=== PATIENT | female | born 1995 | race Caucasian/White ===

== ENCOUNTER 2017-03-02 20:47 | Inpatient (IN) | payer OTHER ==
[~2017-03-02] VITALS: Ht 175.3 cm; Wt 91.2 kg
[2017-03-02 21:02] VITALS: BP 132/82; PULSE 97; RESP 18; TEMP 98.5; O2SAT 100
[2017-03-02] MEDS ORDERED: PROM25TA10 PO (21:15)
[2017-03-02] MEDS ORDERED: ZOFR4TAB PO (21:15)
[2017-03-02] MEDS ORDERED: VENTAER INH (21:15)
[2017-03-02] MEDS ORDERED: PANT40TA3 PO (21:15)
[2017-03-02] MEDS ORDERED: SODIUM CHLORIDE 0.9% FLUSH 10 ML FLUSH IVF PRN (21:45)
--- NOTE | 2017-03-02 21:57 | PD ---
HPI Chief Complaint: Psychiatric Symptoms Time Seen by Provider: 20:59 Travel History International Travel<30 days: No Contact w/Intl Traveler<30days: No Traveled to known affect area: No History of Present Illness HPI Is a 21-year-old woman presents emergency Department under Barfield act. Patient reportedly was having an argument with her mom. Patient is 4 months is a history of psychiatric illness. She apparently a bunch of pills in her mouth, Zoloft, and then spit them out. His a lot of social stressors with being , and her living situation with with her father the baby prior to moving back home. Patient denies swallowing any of the pills. She's been Barfield acted in the past. History Past Medical History Narrative Medical Mental health problems Tetanus Vaccination: > 5 Years Influenza Vaccination: No : 4 Social History Alcohol Use: Yes (OCCASIONALLY BEFORE ) Tobacco Use: Yes (VAPE) Allergies-Medications (Allergen,Severity, Reaction): Coded Allergies: carbamazepine (Verified Allergy, Unknown, 03/02/17) divalproex sodium (Verified Allergy, Unknown, 03/02/17) trazodone (Verified Allergy, Unknown, 03/02/17) Reported Meds & Prescriptions Reported Meds & Active Scripts Active Reported Zofran (Ondansetron HCl) 4 Mg Tab 4 Mg PO DAILY PRN Phenergan (Promethazine HCl) 25 Mg Tablet 25 Mg PO TID PRN Pantoprazole (Pantoprazole Sodium) 40 Mg Tab 40 Mg PO DAILY Ventolin Hfa 18 GM Inh (Albuterol Sulfate) 90 Mcg/Act Aer 2 Puff INH Q4-6H PRN Review of Systems Except as stated in HPI: all other systems reviewed are Neg Physical Exam Narrative GENERAL: Well-appearing 20 year-old woman, no acute distress. SKIN: Focused skin assessment warm/dry. HEAD: Atraumatic. Normocephalic. EYES: Pupils equal and round. No scleral icterus. No injection or drainage. ENT: No nasal bleeding or discharge. Mucous membranes pink and moist. NECK: Trachea midline. No JVD. CARDIOVASCULAR: Regular rate and rhythm. No murmur appreciated. RESPIRATORY: No accessory muscle use. Clear to auscultation. Breath sounds equal bilaterally. GASTROINTESTINAL: Abdomen soft, non-tender, nondistended. Hepatic and splenic margins not palpable. MUSCULOSKELETAL: No obvious deformities. No clubbing. No cyanosis. No edema. NEUROLOGICAL: Awake and alert. No obvious cranial nerve deficits. Motor grossly within normal limits. Normal speech. PSYCHIATRIC: Indignant and sad. Data Data Last Documented VS Vital Signs Date Time Temp Pulse Resp B/P (MAP) Pulse Ox O2 Delivery O2 Flow Rate FiO2 03/02/17 21:02 98.5 97 18 132/82 (99) 100 Orders Orders Electrocardiogram (03/02/17 21:31) Complete Blood Count With Diff (03/02/17 21:31) Comprehensive Metabolic Panel (03/02/17 21:31) Urinalysis - C+S If Indicated (03/02/17 21:31) Sodium Chloride 0.9% Flush (Ns Flush) (03/02/17 21:45) Drug Screen, Random Urine (03/02/17 21:31) Alcohol (Ethanol) (03/02/17 21:31) Salicylates (Aspirin) (03/02/17 21:31) Tylenol (Acetaminophen) (03/02/17 21:31) Ed Poc Ultrasound (03/02/17 ) Ondansetron Odt (Zofran Odt) (03/02/17 22:00) Psych Screen (03/02/17 23:37) Labs Laboratory Tests Test 03/02/17 20:35 03/02/17 22:30 Urine Color LIGHT-YELLOW Urine Turbidity HAZY Urine pH 6.5 Urine Specific [place] 1.005 Urine Protein NEG mg/dL Urine Glucose (UA) NEG mg/dL Urine Ketones NEG mg/dL Urine Occult Blood NEG Urine Nitrite NEG Urine Bilirubin NEG Urine Urobilinogen LESS THAN 2.0 MG/DL Urine Leukocyte Esterase NEG Urine RBC 1 /hpf Urine WBC 2 /hpf Urine Squamous Epithelial Cells 11 /hpf Urine Bacteria OCC /hpf Microscopic Urinalysis Comment CULT NOT INDICATED Blood Urea Nitrogen 5 MG/DL Creatinine 0.53 MG/DL Random Glucose 78 MG/DL Total Protein 7.4 GM/DL Albumin 3.2 GM/DL Calcium Level 9.4 MG/DL Alkaline Phosphatase 118 U/L Aspartate Amino Transf (AST/SGOT) 14 U/L Alanine Aminotransferase (ALT/SGPT) 14 U/L Total Bilirubin 0.2 MG/DL Sodium Level 137 MEQ/L Potassium Level 3.7 MEQ/L Chloride Level 104 MEQ/L Carbon Dioxide Level 23.8 MEQ/L Anion Gap 9 MEQ/L Estimat Glomerular Filtration Rate 143 ML/MIN Salicylates Level LESS THAN 1.7 MG/DL Urine Opiates Screen NEG Acetaminophen Level LESS THAN 2.0 MCG/ML Urine Barbiturates Screen NEG Urine Amphetamines Screen NEG Urine Benzodiazepines Screen NEG Urine Cocaine Screen NEG Urine Cannabinoids Screen POS Ethyl Alcohol Level LESS THAN 3 MG/DL White Blood Count 9.6 TH/MM3 Red Blood Count 3.67 MIL/MM3 Hemoglobin 11.5 GM/DL Hematocrit 33.2 % Mean Corpuscular Volume 90.5 FL Mean Corpuscular Hemoglobin 31.4 PG Mean Corpuscular Hemoglobin Concent 34.7 % Red Cell Distribution Width 12.4 % Platelet Count 239 TH/MM3 Mean Platelet Volume 8.2 FL Neutrophils (%) (Auto) 72.2 % Lymphocytes (%) (Auto) 22.3 % Monocytes (%) (Auto) 5.3 % Eosinophils (%) (Auto) 0.1 % Basophils (%) (Auto) 0.1 % Neutrophils # (Auto) 7.0 TH/MM3 Lymphocytes # (Auto) 2.1 TH/MM3 Monocytes # (Auto) 0.5 TH/MM3 Eosinophils # (Auto) 0.0 TH/MM3 Basophils # (Auto) 0.0 TH/MM3 CBC Comment DIFF FINAL Differential Comment MDM Medical Decision Making Medical Screen Exam Complete: Yes Emergency Medical Condition: Yes Interpretation(s) LABS: CBC is remarkable for mild anemia. CMP is unremarkable. UA is unremarkable. Urine drug screen positive for cannabinoids Salicylates negative Acetaminophen negative Alcohol negative Differential Diagnosis Suicidal gesture, depression, SI, , other Narrative Course Medical decision making 20 year-old woman presents emergency department following suicidal gesture. She may have swallowed some Zoloft pills. We'll check EKG labs. She also was reportedly throwing herself against a table. We'll do a bedside ultrasound to confirm IUP and viability. FINAL: Patient with what appears to be attention seeking suicidal gestures. She doesn't have some depression and hopelessness as well. She is medically clear for psych to see. Rodolfo Castillo MD Mar 02, 2017 21:57
[2017-03-02] MEDS ORDERED: ONDANSETRON ODT 4 MG TAB PO ONE (22:00)
[2017-03-02 22:20] LABS: ALBUMIN 3.2 GM/DL (3.4-5.0); ALT (GPT) 14 U/L (10-53); AST (GOT) 14 U/L (15-37); BICARBONATE 23.8 MEQ/L (21.0-32.0); BLOOD UREA NITROGEN 5 MG/DL (7-18); CALCIUM 9.4 MG/DL (8.5-10.1); CHLORIDE 104 MEQ/L (98-107); CREATININE 0.53 MG/DL (0.50-1.00); GLOMERULAR FILTRATION RATE 143 ML/MIN (>89); GLUCOSE,RANDOM 78 MG/DL (74-106); SODIUM (NA) 137 MEQ/L (136-145)
[2017-03-02 22:22] LABS: ALKALINE PHOSPHATASE 118 U/L (45-117); TOTAL BILIRUBIN ADULT 0.2 MG/DL (0.2-1.0); TOTAL PROTEIN 7.4 GM/DL (6.4-8.2)
[2017-03-02 22:23] LABS: ACETAMINOPHEN LESS THAN 2.0 MCG/ML (10.0-30.0)
[2017-03-02 22:29] LABS: BACTERIA, URINE OCC /hpf; BILIRUBIN, URINE NEG (NEG); BLOOD, URINE NEG (NEG); GLUCOSE,URINE NEG (NEG); KETONE, URINE NEG (NEG); NITRITE,URINE NEG (NEG); PH, URINE 6.5 (5.0-8.5); SQUAMOUS EPITHELIAL CELL URINE 11 /hpf (0-5); URINE COLOR LIGHT-YELLOW (YELLW/STRAW); URINE LEUKOCYTE ESTERASE NEG (NEG)
[2017-03-02 22:53] LABS: BASOPHIL % 0.1 % (0.0-2.0); EOSINOPHIL % 0.1 % (0.0-4.0); HEMATOCRIT 33.2 % (35.0-46.0); HEMOGLOBIN 11.5 GM/DL (11.6-15.3); LYMPH % 22.3 % (9.0-44.0); LYMPHOCYTE # 2.1 TH/MM3 (1.0-4.8); MEAN CELL VOLUME 90.5 FL (80.0-100.0); MEAN CORPUSCULAR HEMOGLOBIN 31.4 PG (27.0-34.0); MEAN CORPUSCULAR HGB CONC 34.7 % (32.0-36.0); MEAN PLATELET VOLUME 8.2 FL (7.0-11.0); MONO % 5.3 % (0.0-8.0); MONOCYTE # 0.5 TH/MM3 (0-0.9); NEUT % 72.2 % (16.0-70.0); PLATELET COUNT 239 TH/MM3 (150-450); RED BLOOD COUNT 3.67 MIL/MM3 (4.00-5.30); RED CELL DISTRIBUTION WIDTH 12.4 % (11.6-17.2); WHITE BLOOD COUNT 9.6 TH/MM3 (4.0-11.0)
[2017-03-03 01:17] VITALS: BP 117/67; PULSE 80; RESP 18; TEMP 97.1; O2SAT 98
[2017-03-03] MEDS ORDERED: MAGNESIUM HYDROXIDE SUSP 30 ML CUP PO PRN (02:00)
[2017-03-03] MEDS ORDERED: LORazepam 2 MG/ML VIAL IM PRN (02:00)
[2017-03-03] MEDS ORDERED: diphenhydrAMINE HCL 50 MG CAP PO PRN (02:00)
[2017-03-03] MEDS ORDERED: diphenhydrAMINE HCL 50 MG/ML VIAL - HS PRN IM (02:00)
[2017-03-03] MEDS ORDERED: diphenhydrAMINE HCL 50 MG/ML VIAL IM PRN (02:00)
[2017-03-03] MEDS ORDERED: diphenhydrAMINE HCL 50 MG CAP - HS PRN PO (02:00)
[2017-03-03] MEDS ORDERED: LORazepam 1 MG TAB PO PRN (02:00)
[2017-03-03] MEDS ORDERED: hydrOXYzine HCL 50 MG TAB PO PRN (02:00)
[2017-03-03] MEDS ORDERED: ACETAMINOPHEN 325 MG TAB PO PRN (02:00)
[2017-03-03] MEDS ORDERED: ALUMINUM/MAGNESIUM/SIMETH 30 ML CUP PO PRN (02:00)
[2017-03-03] MEDS ORDERED: BENZTROPINE MESYLATE 1 MG TAB PO PRN (02:00)
[2017-03-03] MEDS ORDERED: BENZTROPINE MESYLATE 2 MG/2 ML VIAL IM PRN (02:00)
[2017-03-03] MEDS: PANTOPRAZOLE SOD 40 MG DELAYED RELEASE TAB PO SCH (08:03)
[2017-03-03] MEDS: ONDANSETRON ODT 4 MG TAB PO PRN (08:03)
[2017-03-03] MEDS: NICOTINE 21 MG/24 HR PATCH T-DERMAL SCH (09:00)
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
[2017-03-03] MEDS: MULTIVIT/MIN/PREN/FOL AC/IRON PRENATAL TAB PO SCH (14:15)
--- NOTE | 2017-03-03 14:22 | EKG ---
Date Performed: 03/03/2017 Time Performed: 00:58:03 PTAGE: 21 years EKG: Sinus rhythm NORMAL ECG NO PREVIOUS TRACING DOCTOR: Venkat Pathak Interpretating Date/Time 03/03/2017 14:21:57
--- NOTE | 2017-03-03 15:19 | PD.CONS ---
HPI Service [facility] ([place], [place])ists Consult Requested By Dr. Haley Reason for Consult Medical management Primary Care Physician No Primary Care Physician Diagnoses: History of Present Illness 21-year-old female 4 para 0 who presented to inpatient psychiatry being Barfield act for ingesting multiple pills of Zoloft. [facility] consulted for medical management. Patient stated that she does not smoking tobacco anymore but uses Daypro. She did admit using one cigarette yesterday. Patient stated that she is on vitamins. She stated that she had 3 prior abortions. She stated for this they want to keep the baby. Patient also occasionally uses marijuana. She stated that during this she only used it in the beginning of . Patient stated that she sometimes get morning sickness. Denies any nausea or vomiting at the moment. Also stated that she has a history of multiple episodes of diverticulitis so she has chronic pain in her left lower quadrant. She said the pain is mild has been stable. She denies any fever. Denies any diarrhea or constipation. Denies any alcohol use. She has no concerns or complaints. All other review system reviewed and negative. Past Family Social History Allergies: Coded Allergies: carbamazepine (Verified Allergy, Unknown, 03/02/17) divalproex sodium (Verified Allergy, Unknown, 03/02/17) trazodone (Verified Allergy, Unknown, 03/02/17) Past Medical History History diverticulosis and diverticulitis GERD Past Surgical History Foot surgery 3 abortions Reported Medications Reported Meds & Active Scripts Active Reported Zofran (Ondansetron HCl) 4 Mg Tab 4 Mg PO DAILY PRN Phenergan (Promethazine HCl) 25 Mg Tablet 25 Mg PO TID PRN Pantoprazole (Pantoprazole Sodium) 40 Mg Tab 40 Mg PO DAILY Ventolin Hfa 18 GM Inh (Albuterol Sulfate) 90 Mcg/Act Aer 2 Puff INH Q4-6H PRN Active Ordered Medications Current Medications Sodium Chloride (NS Flush) 2 ml UNSCH PRN IVF FLUSH AFTER USING IV ACCESS; Start 03/02/17 at 21:45 Ondansetron HCl (Zofran Odt) 4 mg ONCE ONCE PO Last administered on 03/02/17at 22:07; Start 03/02/17 at 22:00; Stop 03/02/17 at 22:01; Status DC Pantoprazole Sodium (Protonix) 40 mg DAILY PO Last administered on 03/03/17at 08: 03; Start 03/03/17 at 09:00 Ondansetron HCl (Zofran Odt) 4 mg Q24H PRN PO NAUSEA OR VOMITING Last administered on 03/03/17at 08:03; Start 03/03/17 at 02:00 Lorazepam (Ativan) 1 mg Q6H PRN PO MODERATE TO SEVERE ANXIETY; Start 03/03/17 at 02:00 Lorazepam (Ativan Inj) 1 mg Q6H PRN IM MODERATE TO SEVERE ANXIETY; Start at 02:00 Hydroxyzine HCl (Atarax) 50 mg Q6H PRN PO ANXIETY; Start 03/03/17 at 02:00 Diphenhydramine HCl (Benadryl) 50 mg Q6H PRN PO MILD ANXIETY, EPS; Start at 02:00 Diphenhydramine HCl (Benadryl Inj) 50 mg Q6H PRN IM MILD ANXIETY, EPS; Start at 02:00 Benztropine Mesylate (Cogentin) 1 mg Q12H PRN PO EXTRA PYRAMIDAL SYMPTOMS; Start 03/03/17 at 02:00 Benztropine Mesylate (Cogentin Inj) 1 mg Q12H PRN IM EXTRA PYRAMIDAL SYMPTOMS; Start 03/03/17 at 02:00 Diphenhydramine HCl (Benadryl) 50 mg HS PRN PO INSOMNIA; Start 03/03/17 at 02:00 Diphenhydramine HCl (Benadryl Inj) 50 mg HS PRN IM INSOMNIA; Start 03/03/17 at 02:00 Acetaminophen (Tylenol) 650 mg Q4H PRN PO Pain 1-5 or Temp >101F; Start at 02:00 Magnesium Hydroxide (Milk Of Magnesia Liq) 30 ml DAILY PRN PO CONSTIPATION; Start 03/03/17 at 02:00 Al Hydrox/Mg Hydrox/Simethicone (Mag-Al Plus Susp Liq) 30 ml Q6H PRN PO DYSPEPSIA; Start 03/03/17 at 02:00 Nicotine (Habitrol 21 Mg Patch.24 Hr) 1 patch DAILY T-DERMAL Last administered on 03/03/17at 09:00; Start 03/03/17 at 09:00 Miscellaneous Information 1 HS T-DERMAL ; Start 03/03/17 at 21:00 Prenat Multivit/ Invas Tech/Iron/Folic Ac (Stuartnatal Plus 3 ) 1 tab DAILY PO ; Start 03/03/17 at 14:15 Family History Mother had a history of heart disease, breast cancer, and skin cancer unknown type V history of diabetes and cardiac vascular disease Social History Patient has been weaning herself off the vapor. Occasional marijuana use last used early on in . Deny any alcohol use. Physical Exam Vital Signs Vital Signs Date Time Temp Pulse Resp B/P (MAP) Pulse Ox O2 Delivery O2 Flow Rate FiO2 03/03/17 01:17 97.1 80 18 117/67 (84) 98 03/02/17 21:02 98.5 97 18 132/82 (99) 100 Physical Exam GENERAL: This is a well-nourished, well-developed patient, in no apparent distress. SKIN: No rashes, ecchymoses or lesions. Cool and dry. HEAD: Atraumatic. Normocephalic. No temporal or scalp tenderness. EYES: Pupils equal round and reactive. Extraocular motions intact. No scleral icterus. No injection or drainage. ENT: Nose without bleeding, purulent drainage or septal hematoma. Throat without erythema, tonsillar hypertrophy or exudate. Uvula midline. Airway patent. NECK: Trachea midline. No JVD or lymphadenopathy. Supple, nontender, no meningeal signs. CARDIOVASCULAR: Regular rate and rhythm without murmurs, gallops, or rubs. RESPIRATORY: Clear to auscultation. Breath sounds equal bilaterally. No wheezes , rales, or rhonchi. GASTROINTESTINAL: Abdomen soft, nondistended. No hepato-splenomegaly, or palpable masses. No guarding. Mild tenderness to deep palpation in the left lower quadrant per patient's her normal pain. MUSCULOSKELETAL: Extremities without clubbing, cyanosis, or edema. No joint tenderness, effusion, or edema noted. No calf tenderness. Negative Homans sign bilaterally. NEUROLOGICAL: Awake and alert. Cranial nerves II through XII intact. Motor and sensory grossly within normal limits. Five out of 5 muscle strength in all muscle groups. Normal speech. Laboratory Laboratory Tests Test 03/02/17 20:35 03/02/17 22:30 Urine Color LIGHT-YELLOW Urine Turbidity HAZY Urine pH 6.5 Urine Specific [place] 1.005 Urine Protein NEG Urine Glucose (UA) NEG Urine Ketones NEG Urine Occult Blood NEG Urine Nitrite NEG Urine Bilirubin NEG Urine Urobilinogen LESS THAN 2.0 Urine Leukocyte Esterase NEG Urine RBC 1 Urine WBC 2 Urine Squamous Epithelial Cells 11 Urine Bacteria OCC Microscopic Urinalysis Comment CULT NOT INDICATED Blood Urea Nitrogen 5 Creatinine 0.53 Random Glucose 78 Total Protein 7.4 Albumin 3.2 Calcium Level 9.4 Alkaline Phosphatase 118 Aspartate Amino Transf (AST/SGOT) 14 Alanine Aminotransferase (ALT/SGPT) 14 Total Bilirubin 0.2 Sodium Level 137 Potassium Level 3.7 Chloride Level 104 Carbon Dioxide Level 23.8 Anion Gap 9 Estimat Glomerular Filtration Rate 143 Salicylates Level LESS THAN 1.7 Urine Opiates Screen NEG Acetaminophen Level LESS THAN 2.0 Urine Barbiturates Screen NEG Urine Amphetamines Screen NEG Urine Benzodiazepines Screen NEG Urine Cocaine Screen NEG Urine Cannabinoids Screen POS Ethyl Alcohol Level LESS THAN 3 White Blood Count 9.6 Red Blood Count 3.67 Hemoglobin 11.5 Hematocrit 33.2 Mean Corpuscular Volume 90.5 Mean Corpuscular Hemoglobin 31.4 Mean Corpuscular Hemoglobin Concent 34.7 Red Cell Distribution Width 12.4 Platelet Count 239 Mean Platelet Volume 8.2 Neutrophils (%) (Auto) 72.2 Lymphocytes (%) (Auto) 22.3 Monocytes (%) (Auto) 5.3 Eosinophils (%) (Auto) 0.1 Basophils (%) (Auto) 0.1 Neutrophils # (Auto) 7.0 Lymphocytes # (Auto) 2.1 Monocytes # (Auto) 0.5 Eosinophils # (Auto) 0.0 Basophils # (Auto) 0.0 CBC Comment DIFF FINAL Differential Comment Result Diagram: 03/02/17222903/02/172034 Assessment and Plan Assessment and Plan 21-year-old female history of diverticulosis and diverticulitis 4 para 0 who presented with a Barfield act Adjustment disorder/Barfield act -Management per inpatient psychiatrist. , second trimester -UA negative. -Consult OB. -Will place patient on vitamins. Hyperemesis gravidarum -Mild. Patient on Zofran. -Recommend crackers and yuriy gustavo. GERD -Continue Protonix. Polysubstance abuse -Patient occasionally does marijuana and vapor. Encouraged patient not to use any the substance as they can affect the fetus. Patient stated she understood and that's why she is trying to abstain from use. DVT prophylaxis -Encourage ambulation Discussed Condition With Patient Sindhu Waddell MD Mar 03, 2017 15:19
[2017-03-03 17:23] VITALS: BP 112/63; PULSE 90; RESP 17; TEMP 97.9; O2SAT 96
--- NOTE | 2017-03-03 18:59 | PD.CONS ---
HPI Chief Complaint Consultation for care Date Seen: Mar 03, 2017 Time Seen: 18:56 Travel History International Travel<30 Days: No Contact w/Intl Traveler<30Days: No Known Affected Area: No History of Present Illness HPI 21-year-old 4 para 0 elective AB 3 at 16 weeks gestation who is enrolled in care with Dr. Nixon in [place]. She is admitted for a suicidal gesture. History Past Medical History Narrative Medical No chronic diseases Medical History: Denies Significant Hx Obstetric History Obstetric History 3 first trimester terminations She states that she has an antibody that was detected with her labs and has follow-up with Dr. Nixon scheduled on the for this. Past Surgical History Narrative Surgical Foot surgery Family History Family History: Negative Social History Alcohol Use: No Tobacco Use: Yes (the.) Substance Abuse: No Allergies-Medications (Allergen,Severity, Reaction): Coded Allergies: carbamazepine (Verified Allergy, Unknown, 03/02/17) divalproex sodium (Verified Allergy, Unknown, 03/02/17) trazodone (Verified Allergy, Unknown, 03/02/17) Home Meds Reported Medications Ondansetron (Zofran) 4 Mg Tab, 4 MG PO DAILY Y for NAUSEA OR VOMITING, TAB 0 Refills 03/02/17 Promethazine (Phenergan) 25 Mg Tablet, 25 MG PO TID Y for NAUSEA OR VOMITING, TAB 0 Refills 03/02/17 Pantoprazole (Pantoprazole) 40 Mg Tab, 40 MG PO DAILY for Reflux, #30 TAB 0 Refills 03/02/17 Albuterol 18 GM Inh (Ventolin Hfa 18 GM Inh) 90 Mcg/Act Aer, 2 PUFF INH Q4-6H Y for SHORTNESS OF BREATH, #1 INHALER 0 Refills 03/02/17 Physical Exam Vital Signs Date Time Temp Pulse Resp B/P (MAP) Pulse Ox O2 Delivery O2 Flow Rate FiO2 03/03/17 17:23 97.9 90 17 112/63 (79) 96 03/03/17 01:17 97.1 80 18 117/67 (84) 98 03/02/17 21:02 98.5 97 18 132/82 (99) 100 Narrative GENERAL: Well-nourished, well-developed patient. SKIN: Warm and dry. HEAD: Normocephalic and atraumatic. EYES: No scleral icterus. No injection or drainage. ENT: No nasal drainage noted. Mucous membranes pink. Airway patent. NECK: Supple, trachea midline. No JVD. CARDIOVASCULAR: Regular rate and rhythm without murmurs, gallops, or rubs. RESPIRATORY: Breath sounds equal bilaterally. No accessory muscle use. BREASTS: Bilateral exam showed no masses , no retractions, no nipple discharge. ABDOMEN/GI: Abdomen soft, non-tender, bowel sounds present, no rebound, no guarding Gravid to [-] weeks size Fundal Height: [-] GENITOURINARY: External Genitalia: intact and normal in appearance BUS glands: [-] Cervix: [-] Dilatation: [-] Effacement: [-] Station: [-] Presentation: [-] Membranes: [intact or ruptured] Uterine Contractions: [-] FHT's: Category: [-] Baseline: [-] Reactive: [-] Variability: [-] Decels: [-] EXTREMITIES: No cyanosis or edema. BACK: Nontender without obvious deformity. No CVA tenderness. NEUROLOGICAL: Awake and alert. Motor and sensory grossly within normal limits. Five out of 5 muscle strength in all muscle groups. Normal speech. Data Data Orders Orders Electrocardiogram (03/02/17 21:31) Complete Blood Count With Diff (03/02/17 21:31) Comprehensive Metabolic Panel (03/02/17 21:31) Urinalysis - C+S If Indicated (03/02/17 21:31) Sodium Chloride 0.9% Flush (Ns Flush) (03/02/17 21:45) Drug Screen, Random Urine (03/02/17 21:31) Alcohol (Ethanol) (03/02/17 21:31) Salicylates (Aspirin) (03/02/17 21:31) Tylenol (Acetaminophen) (03/02/17 21:31) Ed Poc Ultrasound (03/02/17 ) Ondansetron Odt (Zofran Odt) (03/02/17 22:00) Psych Screen (03/02/17 23:37) Admit Order (Ed Use Only) (03/03/17 00:23) Admit To Inpatient Psych (03/03/17 ) Vital Signs (Adult) BALDEMAR.Q12H.E (03/03/17 00:23) Activity Oob Ad Jeanine (03/03/17 00:23) Level Of Observation (Psych) (03/03/17 00:23) Diet Regular Basic (03/03/17 Breakfast) Basic Metabolic Panel (Bmp) (03/04/17 06:00) Lipid Profile (03/04/17 06:00) Hemoglobin (Hgb) A1c (03/04/17 06:00) Consult Hospitalist (03/03/17 ) Pantoprazole (Protonix) (03/03/17 09:00) Ondansetron Odt (Zofran Odt) (03/03/17 02:00) Lorazepam (Ativan) (03/03/17 02:00) Lorazepam Inj (Ativan Inj) (03/03/17 02:00) Hydroxyzine Hcl (Atarax) (03/03/17 02:00) Diphenhydramine (Benadryl) (03/03/17 02:00) Diphenhydramine Inj (Benadryl Inj) (03/03/17 02:00) Benztropine (Cogentin) (03/03/17 02:00) Benztropine Inj (Cogentin Inj) (03/03/17 02:00) Diphenhydramine (Benadryl) (03/03/17 02:00) Diphenhydramine Inj (Benadryl Inj) (03/03/17 02:00) Acetaminophen (Tylenol) (03/03/17 02:00) Magnesium Hydroxide Liq (Milk Of Magnesi (03/03/17 02:00) Al-Mag Hy-Si 40-40-4 Mg/Ml Liq (Mag-Al P (03/03/17 02:00) Nicotine 21 Mg Patch.24 Hr (Habitrol 21 (03/03/17 09:00) Remove Old Patch (03/03/17 21:00) (Hub Use Only)Inp Phy Cons/Ref (03/03/17 ) ^ Other Nursing Orders (03/03/17 11:54) Complete Blood Count With Diff (03/04/17 06:00) Comprehensive Metabolic Panel (03/04/17 06:00) Thyroid Stimulating Hormone (03/04/17 06:00) Vitamin D, 25-Hydroxy (03/04/17 06:00) Drug Screen, Random Urine (03/03/17 11:56) Vitamin B12 (03/04/17 06:00) Electrocardiogram (03/04/17 ) Specimen To Be Collected PRN (03/03/17 11:56) Tkbdlhec-Tna-Ulpmm-Iron Prenat (Stuartna (03/03/17 14:15) Consult Obstetrics (03/03/17 ) (Hub Use Only)Inp Phy Cons/Ref (03/03/17 ) Labs Laboratory Tests Test 03/02/17 20:35 03/02/17 22:30 Urine Color LIGHT-YELLOW Urine Turbidity HAZY Urine pH 6.5 Urine Specific [place] 1.005 Urine Protein NEG Urine Glucose (UA) NEG Urine Ketones NEG Urine Occult Blood NEG Urine Nitrite NEG Urine Bilirubin NEG Urine Urobilinogen LESS THAN 2.0 Urine Leukocyte Esterase NEG Urine RBC 1 Urine WBC 2 Urine Squamous Epithelial Cells 11 Urine Bacteria OCC Microscopic Urinalysis Comment CULT NOT INDICATED Blood Urea Nitrogen 5 Creatinine 0.53 Random Glucose 78 Total Protein 7.4 Albumin 3.2 Calcium Level 9.4 Alkaline Phosphatase 118 Aspartate Amino Transf (AST/SGOT) 14 Alanine Aminotransferase (ALT/SGPT) 14 Total Bilirubin 0.2 Sodium Level 137 Potassium Level 3.7 Chloride Level 104 Carbon Dioxide Level 23.8 Anion Gap 9 Estimat Glomerular Filtration Rate 143 Salicylates Level LESS THAN 1.7 Urine Opiates Screen NEG Acetaminophen Level LESS THAN 2.0 Urine Barbiturates Screen NEG Urine Amphetamines Screen NEG Urine Benzodiazepines Screen NEG Urine Cocaine Screen NEG Urine Cannabinoids Screen POS Ethyl Alcohol Level LESS THAN 3 White Blood Count 9.6 Red Blood Count 3.67 Hemoglobin 11.5 Hematocrit 33.2 Mean Corpuscular Volume 90.5 Mean Corpuscular Hemoglobin 31.4 Mean Corpuscular Hemoglobin Concent 34.7 Red Cell Distribution Width 12.4 Platelet Count 239 Mean Platelet Volume 8.2 Neutrophils (%) (Auto) 72.2 Lymphocytes (%) (Auto) 22.3 Monocytes (%) (Auto) 5.3 Eosinophils (%) (Auto) 0.1 Basophils (%) (Auto) 0.1 Neutrophils # (Auto) 7.0 Lymphocytes # (Auto) 2.1 Monocytes # (Auto) 0.5 Eosinophils # (Auto) 0.0 Basophils # (Auto) 0.0 CBC Comment DIFF FINAL Differential Comment MDM Medical Record Reviewed: Yes Narrative Course / MDM Assessment: A 16 week intrauterine in a patient admitted for psychiatric issues. Plan: The patient is already enrolled in care. No additional input is necessary from OB at this time. If she has a prolonged hospitalization we can arrange for further inpatient follow-up. Admitting diagnosis: ADJUSTMENT D/O W/ MIXED EMOTIONS & DISTURBANCE IN CONDUCT Rodolfo Maria MD Mar 03, 2017 18:59
[2017-03-03] MEDS: REMOVE OLD NICOTINE PATCH T-DERMAL SCH (20:51)
[2017-03-04 05:41] VITALS: BP 129/70; PULSE 90; RESP 18; TEMP 98
[2017-03-04] MEDS: ONDANSETRON ODT 4 MG TAB PO PRN ×2 (07:00→20:08)
--- NOTE | 2017-03-04 08:53 | HHI.PYPN ---
Subjective Chief Complaint: Aborted suicide attempt Remarks Patient seen and examined with nurse. Chart reviewed. Dr. Haley's H&P and psych screen reviewed. Case discussed with nursing staff. On my exam today, patient presents with broadly dysphoric affect. She reports that purpose of presenting Zoloft ingestion was "to kill myself and the child." She tells me that "life is really shitty and people need to stop pretending that it isn't. She says that the final straw that led her to try to overdose was argument with mother, "my mother was saying I am a crazy bitch and so I thought I should be a crazy bitch [and take OD]." Reports mood swings since , poor sleep. No psychotic symptoms or evidence of impairment in reality construction generally. 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 Not currently seeing a therapist. Denies a h/o SA or NSSIB. Reports of family history "they're all crazy." Works as a paste up artist. Prominent borderline personality traits noted. Staff splitting noted. Complains of nausea. Says that she usually alternates Phenergan and Zofran for nausea. Demanding discharge, says that she has been observed for 24 hours, and this should be sufficient. Review of Systems Except as stated in HPI: all other systems reviewed are Neg Mental Status Examination Appearance: Appropriate Consciousness: Alert Orientation: x4 Motor Activity: Normal gait, Other (No motor abnormalities noted) Speech: Unremarkable Language: Adequate Fund of Knowledge: Adequate Attention and Concentration: Adequate Memory: Unremarkable Mood: Angry, Oppositional, Irritable, Other (Dysphoric) Affect: Irritable, Sad, Labile Thought Process & Associations: Intact Thought Content: Appropriate Hallucination Type: None Delusion Type: None Suicidal Ideation: Yes Suicidal Plan: No Suicidal Intention: No Homicidal Ideation: No Homicidal Plan: No Homicidal Intention: No Insight: Poor Judgment: Poor Results Labs Item Value Date Time White Blood Count 9.6 TH/MM3 03/02/172229 Hemoglobin 11.5 GM/DL L 03/02/172229 Platelet Count 239 TH/MM3 03/02/172229 Sodium Level 137 MEQ/L 03/02/172034 Potassium Level 3.7 MEQ/L 03/02/172034 Chloride Level 104 MEQ/L 1/6/18 2035 Carbon Dioxide Level 23.8 MEQ/L 03/02/172034 Blood Urea Nitrogen 5 MG/DL L 03/02/172034 Creatinine 0.53 MG/DL 03/02/172034 Aspartate Amino Transf (AST/SGOT) 14 U/L L 03/02/172034 Alanine Aminotransferase (ALT/SGPT) 14 U/L 03/02/172034 Alkaline Phosphatase 118 U/L H 03/02/172034 Random Glucose 78 MG/DL 03/02/172034 Estimat Glomerular Filtration Rate 143 ML/MIN 03/02/172034 Urine Cannabinoids Screen POS H 03/03/171903 Admission labs reviewed. Normocytic anemia noted. Tox results noted. EKG NSR QTcH 424ms. Vitals/IOs Vital Signs Date Time Temp Pulse Resp B/P (MAP) Pulse Ox O2 Delivery O2 Flow Rate FiO2 03/04/17 05:41 98.0 90 18 129/70 (89) 03/03/17 17:23 96 Assessment & Plan Problem List: (1) Adjustment disorder with mixed disturbance of emotions and conduct ICD Codes: F43.25 - Adjustment disorder with mixed disturbance of emotions and conduct (2) Use of cannabis ICD Codes: F12.90 - Cannabis use, unspecified, uncomplicated Assessment & Plan Unclear if current psychiatric disturbance is manifestation of borderline personality style or severe decompensated mood illness or perhaps substance induced. Collateral will be helpful in differentiating among these possibilities and efforst will be made to obtain this today. If mood illness is suspected, to consider targeted pharmacotherapy. Monogram Machine Operator input appreciated. Continue to monitor on inpatient unit. Patient is refusing to remain in the hospital, but it will likely require past expiration of BA to clarify diagnosis and institute appropriate treatment plan. I will initiate petition and consult for second opinion. Patient retains capacity to consent for meds at this time. Justification for Cont. Inpt. Concern for impairment in safety. High risk for decompensation in less restrictive setting. Discharge Planning Pending outcome of observation. Request HC Surrog/Guard Advoc?: No (Not at this time.) Nelson Veliz MD Mar 04, 2017 08:53
[2017-03-04] MEDS: NICOTINE 21 MG/24 HR PATCH T-DERMAL SCH (09:00)
[2017-03-04] MEDS: MULTIVIT/MIN/PREN/FOL AC/IRON PRENATAL TAB PO SCH (09:00)
[2017-03-04] MEDS: PANTOPRAZOLE SOD 40 MG DELAYED RELEASE TAB PO SCH (09:00)
[2017-03-04 09:39] LABS: AUTOMATED NEUTROPHIL # 6.8 TH/MM3 (1.8-7.7); BASOPHIL % 0.1 % (0.0-2.0); EOSINOPHIL % 0.1 % (0.0-4.0); HEMATOCRIT 35.1 % (35.0-46.0); HEMOGLOBIN 12.2 GM/DL (11.6-15.3); LYMPHOCYTE # 1.2 TH/MM3 (1.0-4.8); MEAN CELL VOLUME 89.9 FL (80.0-100.0); MEAN CORPUSCULAR HEMOGLOBIN 31.3 PG (27.0-34.0); MEAN CORPUSCULAR HGB CONC 34.8 % (32.0-36.0); MEAN PLATELET VOLUME 8.9 FL (7.0-11.0); MONO % 4.6 % (0.0-8.0); MONOCYTE # 0.4 TH/MM3 (0-0.9); NEUT % 81.2 % (16.0-70.0); PLATELET COUNT 252 TH/MM3 (150-450); RED BLOOD COUNT 3.91 MIL/MM3 (4.00-5.30); RED CELL DISTRIBUTION WIDTH 12.3 % (11.6-17.2); WHITE BLOOD COUNT 8.4 TH/MM3 (4.0-11.0)
[2017-03-04 09:41] LABS: ALBUMIN 3.1 GM/DL (3.4-5.0); AST (GOT) 17 U/L (15-37); BLOOD UREA NITROGEN 5 MG/DL (7-18); CALCIUM 8.8 MG/DL (8.5-10.1); CHLORIDE 108 MEQ/L (98-107); CHOLESTEROL 125 MG/DL (120-200); CREATININE 0.53 MG/DL (0.50-1.00); GLOMERULAR FILTRATION RATE 143 ML/MIN (>89); SODIUM (NA) 138 MEQ/L (136-145); TRIGLYCERIDES 126 MG/DL (42-150)
[2017-03-04 09:47] LABS: ALT (GPT) 15 U/L (10-53); GLUCOSE,RANDOM 89 MG/DL (74-106)
[2017-03-04 10:13] LABS: HEMOGLOBIN A1C 4.9 % (4.3-6.0)
[2017-03-04 10:17] LABS: ALKALINE PHOSPHATASE 117 U/L (45-117); CHOLESTEROL/ HDL RATIO 2.36 RATIO; HDL CHOLESTEROL 52.8 MG/DL (40.0-60.0); LDL CHOLESTEROL 47 MG/DL (0-99); TOTAL BILIRUBIN ADULT 0.3 MG/DL (0.2-1.0); TOTAL PROTEIN 7.4 GM/DL (6.4-8.2)
--- NOTE | 2017-03-04 11:37 | PD.PSY.CON ---
Provisional Diagnosis Admission Date Mar 03, 2017 at 00:28 [place] I. Major depression, single episode, severe, history of bipolar disorder [place] II. Unspecified personality disorder [place] III. 16 weeks , diverticulitis [place] IV. Conflicts with parents [place] V. 45 History of Present Illness Service Psychiatry Consult Requested By Dr. Veliz Reason for Consult Second opinion Primary Care Physician No Primary Care Physician HPI 21-year-old female admitted last night under a Barfield act for attempting to overdose on her mother's Zoloft medication and striking herself in the stomach, allegedly attempting to end this . Patient is now stating she spit out the Zoloft medication, prescribed to her mother, which she was going to take by overdose. She avoids speaking about striking herself in the stomach but states she somehow contacted a table with her abdomen. She does admit to getting into a serious argument with her mother yesterday, with whom she resided. She now claims she cannot reside with her mother and plans to return to her residence in [place], where the baby's father stays. She describes many months of depressive symptoms and feels she may be bipolar. Her current symptoms include depressed mood, anhedonia, suicidal ideation with possible attempt, anxiety, irritability, diminished self-esteem, problems with concentration and attention, appetite disturbance (possibly related to morning sickness), sleep disturbance, etc. she remains highly irritable and unpredictably agitated at this time. She reports smoking cannabis but otherwise denies drug and alcohol abuse. The patient is a 31 years old woman, , domiciled with her boyfriend, unemployed, with psychiatric history of bipolar disorder, PTSD, conduct disorder as a child, cannabis use disorder, 1 previous psychiatric hospitalization, one previous suicidal attempts in her adolescence, he denies history of self inflicting cutting behavior or self mutilations, she is 16 weeks , medical history of diverticulitis, who was brought to the hospital on the Barfield act after attempting to commit suicide by overdose with her mother's Zoloft in the context of an argument with parents. Patient was consulted to me for second opinion. On psychiatric evaluation today patient is in her bed, complaining of nausea, irritable, superficially cooperative. She says that she doesn't need to be year, and she hates to be in a psychiatric mckeon and this hospitalization is bringing back flashbacks of bad memories in her childhood. Patient reports that she was extremely upset with her parents when she overdosed, she regrets her action and at this moment she denies suicidal and homicidal ideation, she denies visual and auditory hallucinations. She is fully oriented 3, no fluctuation of consciousness, no attention deficit present. Review of Systems Constitutional: DENIES: Diaphoretic episodes, Fatigue, Fever, Weight gain, Weight loss, Chills, Dizziness, Change in appetite, Night Sweats Endocrine: DENIES: Abnorml menstrual pattern, Heat/cold intolerance, Polydipsia , Polyuria, Polyphagia Eyes: DENIES: Blurred vision, Diplopia, Eye inflammation, Eye pain, Vision loss , Photosensitivity, Double Vision Ears, nose, mouth, throat: DENIES: Tinnitus, Hearing loss, Vertigo, Nasal discharge, Oral lesions, Throat pain, Hoarseness, Ear Pain, Running Nose, Epistaxis, Sinus Pain, Toothache, Odynophagia Respiratory: DENIES: Apneas, Cough, Snoring, Wheezing, Hemoptysis, Sputum production, Shortness of breath Cardiovascular: DENIES: Chest pain, Palpitations, Syncope, Dyspnea on Exertion , PND, Lower Extremity Edema, Orthopnea, Claudication Gastrointestinal: COMPLAINS OF: Nausea, Vomiting, DENIES: Abdominal pain, Black stools, Bloody stools, Constipation, Diarrhea, Difficulty Swallowing, Anorexia Genitourinary: DENIES: Abnormal vaginal bleeding, Dysmenorrhea, Dyspareunia, Sexual dysfunction, Urinary frequency, Urinary incontinence, Urgency, Hematuria , Dysuria, Nocturia, Vaginal discharge Musculoskeletal: DENIES: Joint pain, Muscle aches, Stiffness, Joint Swelling, Back pain, Neck pain Hematologic/lymphatic: DENIES: Bruising, Lymphadenopathy Immunologic/allergic: DENIES: Eczema, Urticaria Neurologic: DENIES: Abnormal gait, Headache, Localized weakness, Paresthesias, Seizures, Speech Problems, Tremor, Poor Balance Psychiatric: COMPLAINS OF: Depression, DENIES: Anxiety, Confusion, Mood changes , Hallucinations, Agitation, Suicidal Ideation, Homicidal Ideation, Delusions Past Family Social History Coded Allergies: carbamazepine (Verified Allergy, Unknown, 03/02/17) divalproex sodium (Verified Allergy, Unknown, 03/02/17) trazodone (Verified Allergy, Unknown, 03/02/17) Reported Medications Ondansetron (Zofran) 4 Mg Tab, 4 MG PO DAILY Y for NAUSEA OR VOMITING, TAB 0 Refills 03/02/17 Promethazine (Phenergan) 25 Mg Tablet, 25 MG PO TID Y for NAUSEA OR VOMITING, TAB 0 Refills 03/02/17 Pantoprazole (Pantoprazole) 40 Mg Tab, 40 MG PO DAILY for Reflux, #30 TAB 0 Refills 03/02/17 Albuterol 18 GM Inh (Ventolin Hfa 18 GM Inh) 90 Mcg/Act Aer, 2 PUFF INH Q4-6H Y for SHORTNESS OF BREATH, #1 INHALER 0 Refills 03/02/17 Current Medications Medications (Trade) Dose Ordered Sig/Devendra Route Start Time Stop Time Status Last Admin (NS Flush) 2 ml UNSCH PRN IVF 03/02/17 21:45 (Protonix) 40 mg DAILY PO 03/03/17 09:00 03/04/17 09:00 (Zofran Odt) 4 mg Q24H PRN PO 03/03/17 02:00 03/03/17 08:03 (Atarax) 50 mg Q6H PRN PO 03/03/17 02:00 (Benadryl) 50 mg Q6H PRN PO 03/03/17 02:00 (Benadryl Inj) 50 mg Q6H PRN IM 03/03/17 02:00 (Benadryl) 50 mg HS PRN PO 03/03/17 02:00 (Tylenol) 650 mg Q4H PRN PO 03/03/17 02:00 (Milk Of Magnesia Liq) 30 ml DAILY PRN PO 03/03/17 02:00 (Mag-Al Plus Susp Liq) 30 ml Q6H PRN PO 03/03/17 02:00 (Habitrol 21 Mg Patch.24 Hr) 1 patch DAILY T-DERMAL 03/03/17 09:00 03/04/17 09:00 Miscellaneous Information 1 HS T-DERMAL 03/03/17 21:00 (Stuartnatal Plus 3 ) 1 tab DAILY PO 03/03/17 14:15 03/03/17 14:15 Family Psych History Patient has a mother with PTSD Social History Patient was born and raised in [facility], she lives in [place] with her boyfriend, unemployed, her highest level of education is ninth grade Patient's Strengths (min. 2) Verbal and has access to healthcare. Physical Exam Vital Signs Vital Signs Date Time Temp Pulse Resp B/P (MAP) Pulse Ox O2 Delivery O2 Flow Rate FiO2 03/04/17 05:41 98.0 90 18 129/70 (89) 03/03/17 17:23 96 Lab Results Test 03/03/17 19:04 03/04/17 08:27 Urine Opiates Screen NEG Urine Barbiturates Screen NEG Urine Amphetamines Screen NEG Urine Benzodiazepines Screen NEG Urine Cocaine Screen NEG Urine Cannabinoids Screen POS White Blood Count 8.4 TH/MM3 Red Blood Count 3.91 MIL/MM3 Hemoglobin 12.2 GM/DL Hematocrit 35.1 % Mean Corpuscular Volume 89.9 FL Mean Corpuscular Hemoglobin 31.3 PG Mean Corpuscular Hemoglobin Concent 34.8 % Red Cell Distribution Width 12.3 % Platelet Count 252 TH/MM3 Mean Platelet Volume 8.9 FL Neutrophils (%) (Auto) 81.2 % Lymphocytes (%) (Auto) 14.0 % Monocytes (%) (Auto) 4.6 % Eosinophils (%) (Auto) 0.1 % Basophils (%) (Auto) 0.1 % Neutrophils # (Auto) 6.8 TH/MM3 Lymphocytes # (Auto) 1.2 TH/MM3 Monocytes # (Auto) 0.4 TH/MM3 Eosinophils # (Auto) 0.0 TH/MM3 Basophils # (Auto) 0.0 TH/MM3 CBC Comment DIFF FINAL Differential Comment Blood Urea Nitrogen 5 MG/DL Creatinine 0.53 MG/DL Random Glucose 89 MG/DL Total Protein 7.4 GM/DL Albumin 3.1 GM/DL Calcium Level 8.8 MG/DL Alkaline Phosphatase 117 U/L Aspartate Amino Transf (AST/SGOT) 17 U/L Alanine Aminotransferase (ALT/SGPT) 15 U/L Total Bilirubin 0.3 MG/DL Sodium Level 138 MEQ/L Potassium Level 3.2 MEQ/L Chloride Level 108 MEQ/L Carbon Dioxide Level 19.0 MEQ/L Anion Gap 11 MEQ/L Estimat Glomerular Filtration Rate 143 ML/MIN Hemoglobin A1c 4.9 % Triglycerides Level 126 MG/DL Cholesterol Level 125 MG/DL LDL Cholesterol 47 MG/DL HDL Cholesterol 52.8 MG/DL Cholesterol/HDL Ratio 2.36 RATIO Vitamin B12 Level 305 PG/ML 25-Hydroxy Vitamin D Total 22.6 ng/ML Thyroid Stimulating Hormone 3rd Gen 0.971 uIU/ML Mental Status Examination Appearance: Appropriate Consciousness: Alert Orientation: x4 Motor Activity: Normal gait, Other (No motor abnormalities noted) Speech: Unremarkable Language: Adequate Fund of Knowledge: Adequate Attention and Concentration: Adequate Memory: Unremarkable Mood: Angry, Oppositional, Irritable, Other (Dysphoric) Affect: Irritable, Sad, Labile Thought Process & Associations: Intact Thought Content: Appropriate Hallucination Type: None Delusion Type: None Suicidal Ideation: Yes Suicidal Plan: No Suicidal Intention: No Homicidal Ideation: No Homicidal Plan: No Homicidal Intention: No Insight: Poor Judgment: Poor Assessment & Plan Problem List: (1) Adjustment disorder with mixed disturbance of emotions and conduct ICD Codes: F43.25 - Adjustment disorder with mixed disturbance of emotions and conduct Assessment & Plan: Patient was seen and examined today for psychiatric significant opinion. Documentation was reviewed. I agree and concur with Dr. Veliz assessment and plan. Consult appreciated. (2) Use of cannabis ICD Codes: F12.90 - Cannabis use, unspecified, uncomplicated Assessment & Plan Estimated LOS: days Request HC Surrog/Guard Advoc?: No (Not at this time.) William Salomon MD Mar 04, 2017 11:37
[2017-03-04] MEDS: PROMETHAZINE HCL 25 MG TAB PO PRN (12:32)
--- NOTE | 2017-03-04 14:50 | HHI.PR ---
Subjective Remarks Follow-up visit on 21-year-old female G4, P0 who is 16 weeks who is BA history of diverticulosis, with hyperemesis gravidarum. Patient seen and examined with nurse at bedside. Today she repots increased nausea and vomiting, she repots that at home she will alternate between Phenergan and Zofran for nausea and vomiting. She has been able to keep fluids down as long as she takes small sips at a time. She also feels as if her nausea is worse due to diverticulitis, she feels as if she is having a flare of this. Complaints of left lower abdominal pain tenderness, and constipation. She repots that today is day 6 without a BM. She denies any fevers, chills, cough or SOB. Objective Vitals Vital Signs Date Time Temp Pulse Resp B/P (MAP) Pulse Ox O2 Delivery O2 Flow Rate FiO2 03/04/17 05:41 98.0 90 18 129/70 (89) 03/03/17 17:23 97.9 90 17 112/63 (79) 96 Result Diagram: 03/04/1782603/04/17826 Objective Remarks GENERAL: This is a well-nourished, well-developed patient, in no apparent distress. SKIN: Cool and dry. HEAD: Atraumatic. Normocephalic. EYES: Pupils equal round and reactive. Extraocular motions intact. No scleral icterus. No injection or drainage. ENT: Nose without bleeding, purulent drainage, airway patent. NECK: Trachea midline. CARDIOVASCULAR: Regular rate and rhythm without murmurs, gallops, or rubs. RESPIRATORY: Clear to auscultation. Breath sounds equal bilaterally. No wheezes , rales, or rhonchi. GASTROINTESTINAL: Abdomen soft, nondistended. Mild tenderness to deep palpation in the left lower quadrant chronic per patient. MUSCULOSKELETAL: Extremities without clubbing, cyanosis, or edema. No joint tenderness, effusion, or edema noted. NEUROLOGICAL: Awake and alert. Motor and sensory grossly within normal limits. Five out of 5 muscle strength in all muscle groups. Normal speech. A/P Assessment and Plan 21-year-old female history of diverticulosis and diverticulitis 4 para 0 who presented with a Barfield act Adjustment disorder/Barfield act -Management per inpatient psychiatrist. , second trimester -UA negative. -OB has seen patient and signed off. - Continue vitamins, will need to follow-up with her OB who she already has established with. Hyperemesis gravidarum - Increased nausea today - Resume Phenergan as needed, Zofran Q12hrs as needed as well, can alternate for relief - Continue to monitor. Constipation/Hx diverticulosis - Patient afebrile, denies dysuria, chronic LLQ tenderness. No elevated WBC count. - MiraLAX for constipation, encouraged to increase foods high in fiber as well as fluid intake. GERD -Continue Protonix. Polysubstance abuse -Patient occasionally does marijuana and vapor. Encouraged patient not to use any the substance as they can affect the fetus. Patient stated she understood and that's why she is trying to abstain from use. Hypokalemia - K 3.2, replaced with 30meq of KCL PO - Recheck tomorrow. DVT prophylaxis -Encourage ambulation Jeannette Meadows Mar 04, 2017 14:50
[2017-03-04 15:00] VITALS: BP 112/62; PULSE 94; RESP 18; TEMP 96.2; O2SAT 98
[2017-03-04] MEDS ORDERED: POTASSIUM CHLORIDE 10 MEQ CONTROLLED RELEASE TAB PO ONE (15:00)
--- NOTE | 2017-03-04 18:56 | EKG ---
Date Performed: 03/04/2017 Time Performed: 07:24:43 PTAGE: 21 years EKG: Sinus rhythm NORMAL ECG PREVIOUS TRACING : 03/03/2017 00.58 Compared to prior tracing no significant change DOCTOR: Hilary David Interpretating Date/Time 03/04/2017 18:55:41
[2017-03-04] MEDS: REMOVE OLD NICOTINE PATCH T-DERMAL SCH (21:00)
[2017-03-05] MEDS: PROMETHAZINE HCL 25 MG TAB PO PRN (05:27)
[2017-03-05 05:46] VITALS: BP 108/55; PULSE 77; RESP 20; TEMP 97.3; O2SAT 99
[2017-03-05] MEDS: MULTIVIT/MIN/PREN/FOL AC/IRON PRENATAL TAB PO SCH (09:00)
[2017-03-05] MEDS: PANTOPRAZOLE SOD 40 MG DELAYED RELEASE TAB PO SCH (09:00)
[2017-03-05] MEDS: NICOTINE 21 MG/24 HR PATCH T-DERMAL SCH (09:00)
[2017-03-05] MEDS: ONDANSETRON ODT 4 MG TAB PO PRN (09:05)
--- NOTE | 2017-03-05 09:48 | PD.TTN ---
Patient Problems 1. Discharge planning 2. Medication compliance 3. Knowledge deficit 4. Lack of coping skills Progress Toward Goals Provider Present: Dr. Eunice Veliz Provider Input: Patient will not be on any psychotropic medications due to patient's . Patient is new admission and will get collateral information from family memebers Nurse(s) Input: Patient is irratible and difficult to approach. Patient is compliant with medications that are distributed to her. Patient continues to voice needs to staff memebers. Psychiatric Counselors Present: HEIDY Calixto Psych Therapist Input: Counselor will attempt to get collateral information from either boyfriend, which whom she lives with, or baby's father. Patient is noted to be irritible and dificult with staff memebers. Group Spec/RT/OT/[place] Present: [facility] Group Spec/RT/OT/[place] Input: Patient is selective with groups and is difficult to redirect and to be appropriate. Courtney Griffith [facility] Mar 05, 2017 09:48
[2017-03-05] MEDS ORDERED: PREN29TA PO (11:44)
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
[2017-03-05] MEDS ORDERED: POLYETHYLENE GLYCOL 17 GM PKG PO SCH (14:00)
--- NOTE | 2017-03-05 14:13 | HHI.PR ---
Subjective Remarks Follow-up visit G4, P0 who is 16 weeks with hyperemesis gravidarum, history of diverticulosis, constipation. Patient seen and examined today. Reports she is doing well. States she hasn't had a bowel movement yet. Discussed with patient importance of having bowel movement not being constipated especially with and history of diverticulosis. Discuss with patient that she should start taking MiraLAX at home daily. Patient states that she is going home today and being discharged by primary team. Counseled on smoking, alcohol, marijuana use. Verbalized understanding. States she is waiting for her ride. Denies pain or discomfort, denies fevers, chills, cough, shortness of breath or dyspnea, Abdominal pain or cramping, dysuria. Objective Vitals Vital Signs Date Time Temp Pulse Resp B/P (MAP) Pulse Ox O2 Delivery O2 Flow Rate FiO2 03/05/17 05:46 97.3 77 20 108/55 (72) 99 03/04/17 15:00 96.2 94 18 112/62 (79) 98 Result Diagram: 03/04/17 0827 03/05/17 0815 Objective Remarks GENERAL: This is a well-nourished, well-developed patient, in no apparent distress. SKIN: Warm and dry. Multiple tattoos neck, bilateral upper extremity, bilateral lower extremity. HEENT: Normocephalic. Pupils equal round and reactive. Nose without bleeding. Airway patent. NECK: Trachea midline. CARDIOVASCULAR: Regular rate and rhythm without murmurs, gallops, or rubs. RESPIRATORY: Clear to auscultation. Breath sounds equal bilaterally. No wheezes , rales, or rhonchi. GASTROINTESTINAL: Abdomen hypoactive bowel sound. MUSCULOSKELETAL: Extremities without clubbing, cyanosis, or edema. NEUROLOGICAL: Awake and alert. Oriented to time, place, person. No focal neuro deficit. Moves all extremities. Normal speech. A/P Problem List: (1) Constipation ICD Code: K59.00 - Constipation, unspecified (2) ICD Code: Z34.90 - Encounter for supervision of normal , unspecified, unspecified trimester (3) Use of cannabis ICD Code: F12.90 - Cannabis use, unspecified, uncomplicated (4) Cluster B personality disorder ICD Code: F60.9 - Personality disorder, unspecified (5) Adjustment disorder with mixed disturbance of emotions and conduct ICD Code: F43.25 - Adjustment disorder with mixed disturbance of emotions and conduct (6) Severe major depression, single episode, without psychotic features ICD Code: F32.2 - Major depressive disorder, single episode, severe without psychotic features Assessment and Plan 21-year-old female history of diverticulosis and diverticulitis 4 para 0 who presented with a Barfield act Adjustment disorder/Barfield act -Management per inpatient psychiatrist. , second trimester -UA negative. -OB has seen patient and signed off. - Continue vitamins, will need to follow-up with her OB who she already has established with. Hyperemesis gravidarum - Phenergan as needed, Zofran Q12hrs as needed as well, can alternate for relief Constipation/Hx diverticulosis - MiraLAX daily for constipation, encouraged to increase foods high in fiber as well as fluid intake. GERD - Continue Protonix. Polysubstance abuse - Patient occasionally does marijuana and vapor. Encouraged patient not to use any the substance as they can affect the fetus. Verbalized understanding. Hypokalemia - KCL replaced. - Repeat potassium within normal DVT prophylaxis -Encourage ambulation Stable to [place] home. Follow-up with PCP and NETWORK DESIGNER. Ceci Felix Mar 05, 2017 14:13
== END 2017-03-05 15:20 | disposition home or self-care (01) | DRG 781 ==
LOC: NEPD 20:47 → NEDA 03-03 00:28 → H270 03-03 01:10
PROVIDERS: ADMIT Psychiatry & Neurology Psychiatry; ATTEND Psychiatry & Neurology Psychiatry
DX: O99.342 Other mental disorders complicating pregnancy, second trimester (principal); R45.851 Suicidal ideations; F32.2 Major depressive disorder, single episode, severe without psychotic features; O99.322 Drug use complicating pregnancy, second trimester; F12.90 Cannabis use, unspecified, uncomplicated; F43.25 Adjustment disorder with mixed disturbance of emotions and conduct; K21.9 Gastro-esophageal reflux disease without esophagitis; O99.612 Diseases of the digestive system complicating pregnancy, second trimester; O21.1 Hyperemesis gravidarum with metabolic disturbance; F60.3 Borderline personality disorder; O99.012 Anemia complicating pregnancy, second trimester; D64.9 Anemia, unspecified; K59.00 Constipation, unspecified; O99.282 Endocrine, nutritional and metabolic diseases complicating pregnancy, second trimester; Z81.8 Family history of other mental and behavioral disorders; Z3A.16 16 weeks gestation of pregnancy
CPT/HCPCS: 80053; 80061; 80307; 81001; 82306; 82607; 83036; 84132; 84443; 85025; 93005; 99285; Q0163; Q0169

== ENCOUNTER 2018-03-12 04:44 | Inpatient (IN) ==
[2018-03-12] MEDS ORDERED: Sod Chloride 0.9% Inj 1,000 ML IV.SIG ONE ×2 (05:38→07:15)
[2018-03-12] MEDS ORDERED: Morphine Inj 4 MG/ML Vial IV.PUSH ONE ×2 (05:38→11:26)
[2018-03-12 06:19] LABS: Baso % (Auto) 0.2 % (0.0-2.0); Eos % (Auto) 0.1 % (0.0-4.0); Hematocrit 42.5 % (35.0-46.0); Hemoglobin 14.8 gm/dL (11.6-15.3); Lymph # (Auto) 1.5 th/mm3 (1.0-4.8); Lymph % (Auto) 14.7 % (9.0-44.0); Mean Corpuscular HGB Conc 34.8 % (32.0-36.0); Mean Corpuscular Hemoglobin 32.3 pg (27.0-34.0); Mean Corpuscular Volume 92.8 fL (80.0-100.0); Mean Platelet Volume 8.7 fL (7.0-11.0); Mono # (Auto) 0.5 th/mm3 (0.0-0.9); Mono % (Auto) 4.5 % (0.0-8.0); Neut # (Auto) 8.1 th/mm3 (1.8-7.7); Neut % (Auto) 80.5 % (16.0-70.0); Platelet Count 274 th/mm3 (150-450); Red Blood Count 4.58 mil/mm3 (4.00-5.30); Red Cell Distribution Width 13.5 % (11.6-17.2); White Blood Count 10.1 th/mm3 (4.0-11.0)
[2018-03-12 06:31] LABS: Activated Partial Thrombo Time 26.4 sec (23.4-31.7); Prothrombin Time 10.1 sec (9.8-11.6)
--- NOTE | 2018-03-12 06:31 | ED ---
HPI General Chief complaint: Abdominal Pain Stated complaint: Upper abd pain, n/v Time Seen by Provider: 03/12/18 04:58 Source: patient Mode of arrival: ambulatory Limitations: no limitations History of Present Illness HPI narrative: The patient is a 22 year old female who presents to the [facility] emergency department with a history of reportedly having pain underneath bilateral sides of her rib cage in the upper aspect of the abdomen that began a couple of days ago. The patient reports that 6 hours ago the pain seemed to be gradually getting worse and then became severe 1-1/2 hours ago. She reports that when it became severe she developed nausea and vomiting multiple times. She denies having any diarrhea. She reports that her last meal was 4 hours ago. She denies any increased pain with eating. She denies having any acid reflux symptoms or heartburn. She denies ever having a pain like this previously. She reports that she has had a kidney stone in the past, however this pain is different. She reports that the pain is now worse in the right upper quadrant of the abdomen. She reports that she last had a bowel movement earlier today. She denies having any blood in her stool or black or tarry stools. She denies having any vaginal discharge or unusual vaginal bleeding associated with this. On review of systems otherwise, the patient denies having any known recent fevers, cough, congestion, neck pain, chest pain, shortness of breath, urinary symptoms, or neurologic symptoms. LMP: 1-1/2 weeks ago Related Data Home Medications Medication Instructions Recorded Confirmed ondansetron [Zofran ODT] 4 mg PO Q6-8H PRN 12/19/17 03/12/18 lamotrigine [Lamictal] 5 mg PO DAILY 03/12/18 03/12/18 Allergies Allergy/AdvReac Type Severity Reaction Status Date / Time carbamazepine Allergy Unknown Verified 03/02/17 21:09 divalproex sodium Allergy Unknown Verified 03/02/17 21:09 trazodone Allergy Unknown Verified 03/02/17 21:09 Review of Systems ROS: all other systems reviewed are negative [facility] Medical History Medical History Diverticulosis (Acute) Hyperemesis arising during (Acute) Kidney stone (Acute) Surgical History Surgical History H/O foot surgery (Acute) Social History Social History Substance History: Active Abuse Second Hand Smoke Exposure: Yes Smoking Status: Heavy tobacco smoker Tobacco Type: Cigarettes and E-Cigarettes Packs Per Day: 0.5 Cigarettes Per Day: 10.0 How Often Do You Have a Drink Containing Alcohol: Monthly or less Recent Travel in [place] within the Last 8 Weeks: No Recent Out of Country Travel within the Last 8 Weeks: No Substance Abuse Detail Marijuana: Route Used Substance Abuse: Inhalation Reason for Use: Feels Good Immunization History Tetanus Immunization: <5 Years Exam Const General: cooperative, well developed and acute distress (Writhing around the bed , screaming out in pain intermittently.) severe Nutritional Appearance: well nourished Orientation: alert, awake and oriented x3 HENMT Head: normocephalic and atraumatic Nose: no nasal discharge and no epistaxis Mouth: moist mucous membranes Throat: posterior oropharynx normal and uvula midline Eyes Sclera: normal sclerae Pupils: PERRL Neck Neck: no meningeal signs, trachea midline and no JVD Resp Effort & Inspection: no use of accessory muscles Auscultation: clear to auscultation bilaterally Cardio Rate: regular rate Rhythm: regular rhythm Heart Sounds: no murmurs GI Inspection: non-distended Palpation: soft, no hepatosplenomegaly, no guarding, not rigid and tender in the epigastrum, in the RUQ and Adams's sign positive; not in the LLQ, not in the RLQ, not at McBurney's point, not suprapubicly and with no rebound tenderness Back/Spine/Pelvis Back: no CVA tenderness Skin General: dry skin (warm) Neuro General: alert, awake, oriented x3 and other (Grossly nonfocal) Speech: speech normal Motor: no movement abnormalities noted Extrem General: normal to inspection (2+ pulses in all 4 extremities), no calf tenderness, no clubbing, no cyanosis and no edema Psych Mood: congruent mood Affect: normal affect Judgment: judgment good Course Initial Documented Vital Signs Temperature 98 F 03/12/18 04:47 Pulse Rate 93 H 03/12/18 04:47 Respiratory Rate 20 03/12/18 04:47 Blood Pressure 145/93 H 03/12/18 04:47 Pulse Oximetry 98 03/12/18 04:47 Last Documented Vital Signs Temperature 98 F 03/12/18 04:47 Pulse Rate 88 03/12/18 08:48 Respiratory Rate 20 03/12/18 04:47 Blood Pressure 101/51 L 03/12/18 08:48 Pulse Oximetry 99 03/12/18 08:48 Sign Out Sign Out Data: Patient Sign Out occurred on 03/12/18 at 07:28. Patient's care was discussed, and care was transferred from Maki Thomas MD to Edgar Brito DO. Sign Out Comment: The patient presents with severe abdominal pain associated with nausea and vomiting. The patient is pending ultrasound of the right upper quadrant of the abdomen and urinalysis. The disposition is pending based on the conclusion of the patient's workup. Last updated by Maki Thomas MD at 03/12/18 07:19 Medical Decision Making MDM Narrative Medical decision making narrative: During the course of the patient's emergency department visit, the patient's history, examination, and differential diagnosis were reviewed with the patient. The patient was placed on a residential monitor with oximetry and frequent blood pressure monitoring. The patient had IV access obtained and blood work sent for analysis. A diagnostic evaluation was started regarding the patient's abdominal pain. The patient was initially provided normal saline 1 L IV fluid bolus, morphine 4 mg IV for pain, Zofran 4 mg IV for nausea. The patient's diagnostic studies are remarkable for a white count of 10.1, hemoglobin 14.8, platelets 274 with 80.5 neutrophils. Chemistry is remarkable for potassium 3.1, chloride 108, CO2 20.5, GFR 69, glucose 121, lactic acid is elevated at 2.5. The patient was given Zosyn 3.375 g IV for suspected abdominal source of infection, AST 14, alk phos 125, cardiac enzymes within normal limits, lipase within normal limits. CHEST X-RAY: Shows no acute abnormality. The patient's case will be checked out to the oncoming emergency physician to disposition the patient based on the conclusion of her workup. The patient was provided a second liter of normal saline. The patient is pending ultrasound of the right upper quadrant of the abdomen to evaluate her gallbladder. 1000: Ultrasound report reviewed, patient has gallstones, thickened gallbladder ocampo 8 mm, pericholecystic fluid, positive Adams sign, neutrophilia. Case discussed with Dr. Hudson educational assistant teacher, Dr. Hudson is in the operating, at this time will await patient later, agreed with admission. Medical Screen Exam Complete: Yes Emergency Medical Condition: Yes Differential Diagnosis Differential Diagnosis: Acute cholecystitis, versus biliary colic, versus kidney stone, versus pyelonephritis Medical Records Medical records reviewed: Yes I reviewed the patient's medical records. Lab Data Lab results reviewed: Yes I reviewed the patient's lab results. Result diagrams: 03/12/18 05:49 03/12/18 05:49 Lab Results 03/12/18 03/12/18 03/12/18 Range/Units 05:49 05:49 05:49 WBC 10.1 (4.0-11.0) th/mm3 RBC 4.58 (4.00-5.30) mil/mm3 Hgb 14.8 (11.6-15.3) gm/dL Hct 42.5 (35.0-46.0) % MCV 92.8 (80.0-100.0) fL MCH 32.3 (27.0-34.0) pg MCHC 34.8 (32.0-36.0) % RDW 13.5 (11.6-17.2) % Plt Count 274 (150-450) th/mm3 MPV 8.7 (7.0-11.0) fL Neut % (Auto) 80.5 H (16.0-70.0) % Lymph % (Auto) 14.7 (9.0-44.0) % [place] % (Auto) 4.5 (0.0-8.0) % Eos % (Auto) 0.1 (0.0-4.0) % Baso % (Auto) 0.2 (0.0-2.0) % Neut # (Auto) 8.1 H (1.8-7.7) th/mm3 Lymph # (Auto) 1.5 (1.0-4.8) th/mm3 [place] # (Auto) 0.5 (0.0-0.9) th/mm3 Eos # (Auto) 0.0 (0.0-0.4) th/mm3 Baso # (Auto) 0.0 (0.0-0.2) th/mm3 WBC Differential . Differential Comment Auto diff final PT 10.1 (9.8-11.6) sec INR 1.0 Ratio APTT 26.4 (23.4-31.7) sec Sodium 142 (136-145) meq/L Potassium 3.1 L (3.5-5.1) meq/L Chloride 108 H (98-107) meq/L Carbon Dioxide 20.5 L (21.0-32.0) meq/L Anion Gap 14 (5-15) meq/L BUN 13 (7-18) mg/dL Creatinine 0.99 (0.50-1.00) mg/dL Estimated GFR 69 L (>89) mL/min Random Glucose 121 H (74-106) mg/dL Lactic Acid (0.4-2.0) mmol/L Calcium 9.4 (8.5-10.1) mg/dL Magnesium 2.1 (1.5-2.5) mg/dL Total Bilirubin 0.3 (0.2-1.0) mg/dL AST 14 L (15-37) U/L ALT 15 (10-53) U/L Alkaline Phosphatase 125 H (45-117) U/L Total Creatine Kinase 55 (26-192) U/L Troponin I Less than 0.02 L (0.02-0.05) ng/mL Total Protein 8.2 (6.4-8.2) g/dL Albumin 4.1 (3.4-5.0) g/dL Lipase 100 (73-393) U/L 03/12/18 Range/Units 05:50 WBC (4.0-11.0) th/mm3 RBC (4.00-5.30) mil/mm3 Hgb (11.6-15.3) gm/dL Hct (35.0-46.0) % MCV (80.0-100.0) fL MCH (27.0-34.0) pg MCHC (32.0-36.0) % RDW (11.6-17.2) % Plt Count (150-450) th/mm3 MPV (7.0-11.0) fL Neut % (Auto) (16.0-70.0) % Lymph % (Auto) (9.0-44.0) % [place] % (Auto) (0.0-8.0) % Eos % (Auto) (0.0-4.0) % Baso % (Auto) (0.0-2.0) % Neut # (Auto) (1.8-7.7) th/mm3 Lymph # (Auto) (1.0-4.8) th/mm3 [place] # (Auto) (0.0-0.9) th/mm3 Eos # (Auto) (0.0-0.4) th/mm3 Baso # (Auto) (0.0-0.2) th/mm3 WBC Differential Differential Comment PT (9.8-11.6) sec INR Ratio APTT (23.4-31.7) sec Sodium (136-145) meq/L Potassium (3.5-5.1) meq/L Chloride (98-107) meq/L Carbon Dioxide (21.0-32.0) meq/L Anion Gap (5-15) meq/L BUN (7-18) mg/dL Creatinine (0.50-1.00) mg/dL Estimated GFR (>89) mL/min Random Glucose (74-106) mg/dL Lactic Acid 2.5 H (0.4-2.0) mmol/L Calcium (8.5-10.1) mg/dL Magnesium (1.5-2.5) mg/dL Total Bilirubin (0.2-1.0) mg/dL AST (15-37) U/L ALT (10-53) U/L Alkaline Phosphatase (45-117) U/L Total Creatine Kinase (26-192) U/L Troponin I (0.02-0.05) ng/mL Total Protein (6.4-8.2) g/dL Albumin (3.4-5.0) g/dL Lipase (73-393) U/L Imaging Data Radiologist's impression: Chest X-Ray 03/12/18 05:36 CONCLUSION: 1. Negative portable chest. Gallbladder Ultrasound 03/12/18 05:36 CONCLUSION: 1. Cholelithiasis and findings may represent cholecystitis in the appropriate clinical setting. Discharge Plan Discharge Disposition Patient Disposition: ED Admit(ED Internal Use Only) Discharge Condition Condition: Fair Discharge Order Discharge Orders: ED Use Only Admit Order (Routine); Ordered 03/12/18 Ordered By: Edgar Brito Discharge Details Diagnosis: Abdominal pain, Vomiting, Acute cholecystitis Physicians Team ED Provider: Edgar Brito Primary Care Provider: Primary Care Physici,No Rxs /Orders / Referrals /Forms Prescriptions: No Action ondansetron [Zofran ODT] 4 mg Tablet,Disintegrating 4 mg PO Q6-8H PRN (Reason: Nausea And Vomiting) RF: 0 lamotrigine [Lamictal] 5 mg Tablet, Chewable Dispersible 5 mg PO DAILY RF: 0 Discharge Interventions Interventions: Vital Signs Last Done: 03/12/18 08:48 Status ED Status: Admitted Patient
[2018-03-12 06:42] LABS: Alanine Aminotransferase 15 U/L (10-53); Albumin 4.1 g/dL (3.4-5.0); Anion Gap 14 meq/L (5-15); Aspartate Aminotransferase 14 U/L (15-37); Blood Urea Nitrogen 13 mg/dL (7-18); Calcium 9.4 mg/dL (8.5-10.1); Carbon Dioxide 20.5 meq/L (21.0-32.0); Chloride 108 meq/L (98-107); Glomerular Filtration Rate 69 mL/min (>89); Glucose,Random 121 mg/dL (74-106); Lipase 100 U/L (73-393); Magnesium 2.1 mg/dL (1.5-2.5); Potassium 3.1 meq/L (3.5-5.1); Sodium 142 meq/L (136-145)
[2018-03-12 06:46] LABS: Alkaline Phosphatase 125 U/L (45-117); Total Protein 8.2 g/dL (6.4-8.2)
[2018-03-12 06:48] LABS: Creatine Kinase 55 U/L (26-192)
--- NOTE | 2018-03-12 06:50 | XR ---
EXAM DATE: 03/12/2018 6:47 AM EST AGE/SEX: 22 years / Female INDICATIONS: Chest pain. CLINICAL DATA: This is the patient's initial encounter. Patient reports that signs and symptoms have been present for 1 day and indicates a pain score of 4/10. MEDICAL/SURGICAL HISTORY: None. None. COMPARISON: No prior exams available for comparison. FINDINGS: A single AP view of the chest demonstrates the lungs to be symmetrically aerated without evidence of mass, infiltrate or effusion. The cardiomediastinal contours are unremarkable. Osseous structures a re intact. CONCLUSION: 1. Negative portable chest. Electronically signed by: Seamus Flores MD Board Certified Radiologist 03/12/2018 6:49 AM EST
[2018-03-12] MEDS ORDERED: Piperacil/Tazo 3.375 GM Premix 3.375 GM/50 ML PIGGYBACK IV.SIG ONE (07:15)
[2018-03-12] MEDS ORDERED: Dicyclomine Inj 20 MG/2 ML Ampul IM ONE (08:11)
[2018-03-12] MEDS ORDERED: Sod Chloride 0.9% Inj 1,000 ML IV.SIG SCH (09:15)
[2018-03-12] MEDS ORDERED: Ketorolac Inj 30 MG/ML (IVP) Vial IV.PUSH ONE (09:31)
--- NOTE | 2018-03-12 09:38 | US ---
EXAM DATE: 03/12/2018 8:15 AM EST AGE/SEX: 22 years / Female INDICATIONS: Right upper quadrant pain. CLINICAL DATA: This is the patient's initial encounter. Patient reports that signs and symptoms have been present for 1 day and indicates a pain score of 7/10. MEDICAL/SURGICAL HISTORY: . Diverticulosis. Hyperemesis during . Renal calculi. . Sandie t surgery. COMPARISON: No prior exams available for comparison. MEASUREMENTS: Liver:__ 19.3 cm. Common Bile Duct:__ 5mm. FINDINGS: Liver: Normal echogenicity without focal lesion or ductal dilatation. Portal Vein: Hepatopedal flow seen in portal vein. Common Duct: No intraluminal mass or stone visualized. Gallbladder: Gallstones are present in the gallbladder wall measures 8 mm with slight pericholecysti c fluid. Pancreas: The visualized portions are within normal limits Right Kidney: Normal echogenicity and cortical thickness. No mass or hydronephrosis. Other: None. CONCLUSION: 1. Cholelithiasis and findings may represent cholecystitis in the appropriate clinical setting. Electronically signed by: Thelma Treviño MD Board Certified Radiologist 03/12/2018 9:37 AM EST
[2018-03-12] MEDS ORDERED: Bupivacaine/Epinephrine Inj 0.25% 50 ML Vial ONE (11:03)
[2018-03-12] MEDS ORDERED: Post-op Orders (for Pharmacy) OTHER ONE (12:30)
[2018-03-12] MEDS: ceFAZolin 1 GM Premix Inj 2 GM/100 ML PIGGYBACK IV.SIG ONE (12:30)
[2018-03-12] MEDS ORDERED: Bisacodyl 10 MG Supp RECTAL PRN (12:30)
[2018-03-12] MEDS ORDERED: Promethazine 25 MG Supp RECTAL PRN (12:30)
--- NOTE | 2018-03-12 12:34 | P.OP ---
- Preoperative Diagnosis (1) Acute cholecystitis - Postoperative Diagnosis (1) Acute cholecystitis Procedure: lap dorothy Anesthesia: GETA Surgeon: Josh Hudson MD Estimated blood loss (mL): 5 Pathology: other (gallbladder) Operation and Findings: inflamed gallbladder with stones
[2018-03-12] MEDS ORDERED: ceFAZolin Inj 1,000 MG in Sodium Chlor 0.9% Inj 100 ML IV.SIG SCH (13:00)
[2018-03-12] MEDS ORDERED: Sugammadex Inj 200 MG/2 ML Vial IV.PUSH ONE (13:10)
[2018-03-12] MEDS ORDERED: fentaNYL Citrate Inj 100 MCG/2 ML Ampul ONE (13:37)
[2018-03-12] MEDS ORDERED: *morphine SULFATE 4 MG/ML PERIprocedure ONLY ONE (13:37)
[2018-03-12] MEDS: Sod Chloride 0.9% Inj 1,000 ML IV.CONT SCH (13:51)
[2018-03-12] MEDS: Morphine Inj 4 MG/ML Vial IV.PUSH PRN ×2 (18:26→21:23)
[2018-03-12 19:28] LABS: Bacteria,Urine Many /hpf; Bilirubin,Urine Negative (Negative); Clarity,Urine Cloudy (Clear); Color,Urine Yellow (Yellw/Straw); Glucose,Urine (UA) Negative (Negative); Leukocyte Esterase,Urine Small (Negative); Mucus,Urine Few /lpf (Occasional); Nitrite,Urine Negative (Negative); Specific Gravity,Urine 1.028 (1.002-1.035); Squamous Epithelial Cell,Urine 34 /hpf (0-5)
--- NOTE | 2018-03-12 21:02 | MP ---
cc: Josh Hudson MD DATE OF OPERATION: 03/12/2018 PREOPERATIVE DIAGNOSES: Acute cholecystitis with cholelithiasis. POSTOPERATIVE DIAGNOSES: Acute cholecystitis with cholelithiasis. PROCEDURE PERFORMED: Laparoscopic cholecystectomy. SURGEON: oJsh Hudson MD [employer] MEDIC: none. ESTIMATED BLOOD LOSS: 5 mL DRAINS: None. COMPLICATIONS: None. WOUND CLASSIFICATION: Clean/contaminated. SPECIMENS: Gallbladder. FINDINGS: Distended gallbladder. Minimal adhesions. Thickened and inflamed gallbladder. INDICATIONS: The patient is a 22-year-old female who presents with acute onset of abdominal pain. She states the pain started approximately 24 hours ago and continued to get worse. She had further workup including gallbladder ultrasound +inflammation , decision was made for a laparoscopic cholecystectomy. DETAILS OF PROCEDURE: The patient was taken to the operating suite, placed in supine position. She was prepped and draped in the usual sterile fashion after induction of general endotracheal anesthesia. Brief timeout was done to assure correct patient, procedure, surgical site. We were all in agreement this. Attention was first directed to the umbilicus where local anesthetic was injected. A small dominic incision was made. The Visiport 5 mm Optiview was done to enter the abdomen safely. Abdomen was insufflated with 15 mmHg of pneumoperitoneum. On cursory inspection, no evidence of injury. Three other ports placed, including a 12 mm epigastric followed by two right subcostal 5 mm. The patient was placed in reverse Trendelenburg, airplaned to the left. The gallbladder was grasped. Minimal adhesions were taken down from the gallbladder, and the gallbladder was noted to be somewhat thickened with inflammatory changes. Cystic duct and cystic artery were dissected usual manner with 2 clips placed proximal on the cystic duct and 1 clip placed distal on the cystic artery and cystic duct. Endo Hector were used to transect the cystic duct and cystic artery. The gallbladder was removed the from gallbladder fossa with hook electro Bovie cautery. The gallbladder was placed in an EndoCatch bag and removed from the epigastric port. Hemostasis was obtained. There was no bile leaking. Good hemostasis. The abdomen was then desufflated. Ports were removed. The epigastric port was closed with 0 Vicryl, and 4-0 Monocryl done in all subcuticular incisions. Sterile dressings including Steri-Strips and Mastisol were placed. The patient tolerated the procedure well. No intraoperative complications. All lap and instrument counts were correct at the end of the procedure. The patient was extubated and taken to the PACU. MD JINA Dominguez/mitali , 08:17 PM , 08:25 PM [place]
[2018-03-12] MEDS: ceFAZolin Inj 1 GM in Sodium Chlor 0.9% Inj 100 ML IV.SIG SCH (21:19)
[2018-03-12] MEDS: Senna/Docusate Sodium 8.6/50 MG Tablet PO SCH (21:22)
--- NOTE | 2018-03-12 21:36 | MH ---
cc: Josh Hudson MD DATE OF ADMISSION: 03/12/2018 CHIEF COMPLAINT: Abdominal pain, cholecystitis, cholelithiasis. HISTORY OF PRESENT ILLNESS: The patient is a 22-year-old female who presents with acute onset of abdominal pain. She states the pain is 8/10, located underneath her right-sided ribcage. She states the pain started suddenly, started a few days ago and continued to get worse. She states the pain was worse with movement and better with lying still. She has never had pain quite as severe as this before and she states some associated nausea and vomiting. Denies any change in bowel habits or fevers. She came to the emergency department, had further workup including ultrasound showing thick gallbladder wall and multiple gallstones, concern for symptomatic cholelithiasis, cholecystitis. PAST MEDICAL HISTORY: Diverticulosis, hyperemesis gravidarum, kidney stones. PAST SURGICAL HISTORY: Foot surgery. SOCIAL HISTORY: Positive for smoking. There is no ETOH. Denies IVDA, THC. ALLERGIES: 1. CARBAMAZEPINE. 2. divalproic ACID. 3. TRAZODONE. MEDICATIONS: See EMR. FAMILY HISTORY: Mother with skin cancer, breast cancer. REVIEW OF SYSTEMS: GENERAL: Denies fever or chills. HEENT: Denies eye pain, ear pain. NECK: Denies swelling or pain. LUNGS: Denies cough or wheeze. HEART: Denies palpitations or chest pain. ABDOMEN: Complains of nausea, vomiting, abdominal pain. GENITOURINARY: Denies dysuria, hematuria. ENDOCRINE: Denies polyuria, polydipsia. INTEGUMENT: Denies any masses or lesions. NEUROLOGIC: Denies any numbness or tingling. PSYCHIATRIC: Denies explosive disorder. PHYSICAL EXAMINATION: GENERAL: The patient in no acute distress. VITAL SIGNS: Temperature 98, pulse 93, respirations 20, blood pressure 145/93, saturation 98%. HEENT: Pupils equal, round, reactive. NECK: Supple. Trachea midline. LUNGS: Clear to auscultation bilaterally. HEART: S1, S2 regular. ABDOMEN: Soft, positive tenderness to palpation in the right upper quadrant. No rebound, no guarding. EXTREMITIES: Warm and well perfused. NEUROLOGIC: GCS 15, 5/5 motor in all extremities. INTEGUMENT: No obvious masses or lesions. LABORATORY AND DIAGNOSTIC DATA: WBC 10.1, hemoglobin 14.8, hematocrit 42.5, platelets 274. Sodium 143, potassium 3.1, chloride 108, bicarbonate 20.5, BUN is 13, creatinine 0.9. Glucose 121. Ultrasound reviewed by myself showing cholelithiasis, concern for acute cholecystitis. ASSESSMENT: The patient is a 22-year-old female who presents with acute cholecystitis, cholelithiasis. PLAN: After full workup of the patient with the above-named issues at this point, the patient will need to be n.p.o., IV fluids, IV pain control, antibiotics. We will plan for operative intervention including laparoscopic cholecystectomy. Discussed with the patient. States understanding, agrees and would like to proceed. MD MEHREEN DominguezN/sv/do , 08:28 PM , 08:37 PM [place]
[2018-03-13] MEDS: Morphine Inj 4 MG/ML Vial IV.PUSH PRN ×4 (00:35→12:53)
[2018-03-13] MEDS: Sod Chloride 0.9% Inj 1,000 ML IV.CONT SCH ×4 (00:38→12:56)
[2018-03-13] MEDS: ceFAZolin Inj 1 GM in Sodium Chlor 0.9% Inj 100 ML IV.SIG SCH ×2 (04:20→12:54)
[2018-03-13] MEDS: Senna/Docusate Sodium 8.6/50 MG Tablet PO SCH (08:50)
--- NOTE | 2018-03-13 09:31 | P.PNGS ---
Subjective Patient reports: feels better, still having pain, flatus Physical Exam Vital signs: Vital Signs 03/12/18 10:45 03/12/18 11:43 03/12/18 13:29 Temperature 97.3 F L 97.7 F Pulse Rate 68 101 H Respiratory Rate 13 15 12 Blood Pressure 103/66 100/70 Pulse Oximetry 95 95 03/12/18 13:30 03/12/18 13:45 03/12/18 13:53 Temperature Pulse Rate 88 61 Respiratory Rate 12 14 16 Blood Pressure 101/51 L 107/60 Pulse Oximetry 98 100 03/12/18 14:00 03/12/18 14:15 03/12/18 16:00 Temperature 97.8 F 97.7 F Pulse Rate 61 57 L 47 L Respiratory Rate 13 12 16 Blood Pressure 111/64 101/61 107/56 L Pulse Oximetry 100 100 98 03/12/18 19:56 03/12/18 20:00 03/13/18 00:00 Temperature 97.9 F 97.2 F L Pulse Rate 77 60 Respiratory Rate 18 18 16 Blood Pressure 106/64 94/50 L Pulse Oximetry 97 98 03/13/18 04:00 03/13/18 08:00 Temperature 98 F 98.1 F Pulse Rate 78 83 Respiratory Rate 18 17 Blood Pressure 106/59 L 101/54 L Pulse Oximetry 98 98 Intake & Output 03/12/18 03/13/18 03/13/18 18:59 06:59 18:59 Intake Total 4150 / 4150 2600 / 2600 Output Total 5 / 5 Balance 4145 / 4145 2600 / 2600 Weight 81.647 kg 85.3 kg Intake: IV 2150 / 2150 1400 / 1400 NS Inj 1,000 ML @ 100 mls/hr IV 1000 / 1000 .CONT .Q10H SAHIL Rx#:[id number] Zosyn 3.375 GM Premix 3.375 gm 50 / 50 In 50 ml @ 100 mls/hr IV.SIG ONCE ONE Rx#:[id number] NS Inj 1,000 ML @ 1000 mls/hr 1999 / 1999 IV.SIG BOLUS SAHIL Rx#:[id number] Ancef Inj 1 GM In NS Inj 100 ML 200 / 200 @ 200 mls/hr IV.SIG Q8H SAHIL Rx #:[id number] Flagyl 500 MG Inj 100 ML @ 200 100 / 100 200 / 200 mls/hr IV.SIG Q8H SAHIL Rx#: [id number] Oral 600 / 600 1200 / 1200 Anesthesia Amount 1400 / 1400 Output: Estimated Blood Loss 5 / 5 Other: # Voids 1 4 Date of Last Bowel Movement 03/11/18 Weight On Admission 74.843 kg - Routine Abdominal Exam Present: soft (incisional tenderness) Results - Labs 03/12/18 05:49 03/12/18 05:49 Laboratory Results - last 24 hr 03/12/18 03/12/18 11:40 18:30 Lactic Acid 0.9 Urine Color Yellow Urine Clarity Cloudy H Urine pH 6.0 Ur Specific [place] 1.028 Urine Protein Negative Urine Glucose (UA) Negative Urine Ketones Trace H Urine Occult Blood Negative Urine Nitrate Negative Urine Bilirubin Negative Urine Urobilinogen Less than 2 Ur Leukocyte Esterase Small H Urine RBC 2 Urine WBC 9 H Ur Squamous Epith Cells 34 Urine Bacteria Many H Urine Mucus Few H Micro UA Comment Culture indicated Ur Microscopic Review Not Reportable Urine Culture Comments Culture indicated - Imaging Imaging: ITS Impressions Chest X-Ray 03/12/18 05:36 CONCLUSION: 1. Negative portable chest. Gallbladder Ultrasound 03/12/18 05:36 CONCLUSION: 1. Cholelithiasis and findings may represent cholecystitis in the appropriate clinical setting. Assessment and Plan - Plan POD 1 Lap dorothy for acute cholecystitis dorothy lithiasis PLAN Reg diet oob po pain control d/c home today after lunch
[2018-03-13] MEDS ORDERED: Ketorolac Inj 30 MG/ML (IVP) Vial IV.PUSH ONE (10:05)
[2018-03-13 12:00] VITALS: BP 96/58; PULSE 73; TEMP 98; O2SAT 99
[2018-03-13 12:55] VITALS: RESP 18
== END 2018-03-13 16:05 | disposition home or self-care (01) | DRG 419 ==
LOC: NEPC 04:44 → NEDA 10:11 → N07 14:41
PROVIDERS: ADMIT Surgery; ATTEND Surgery
CPT/HCPCS: 71010; 71045; 76705; 80053; 81001; 82550; 83605; 83690; 83735; 84484; 85025; 85610; 85730; 87086; 88304; 90761; 90765; 90772; 90775; 90782; 96361; 96365; 96372; 96375; 99285; J0131; J0500; J0690; J0780; J1885; J2250; J2270; J2405; J2543; J2765; J3010; J7030